=== PATIENT | male | born 1955 | race African-American/Black ===

== ENCOUNTER 2017-11-15 13:22 | Emergency (ER) | payer SELFPAY ==
[~2017-11-15] VITALS: Ht 175.3 cm; Wt 100.0 kg
[2017-11-15] MEDS ORDERED: ALBUTEROL (0.083%) 2.5MG/3ML NEB HHN STA (14:25)
[2017-11-15] MEDS ORDERED: IPRATROPIUM BROMIDE (0.02%) 0.5MG/2.5ML NEB HHN STA (14:25)
[2017-11-15] MEDS ORDERED: METHYLPREDNISOLONE SOD SUCC 125 MG/2 ML VIAL IV ONE (14:30)
[2017-11-15 14:57] LABS: BASOPHILS % 1.1 % (0.0-2.0); EOSINOPHILS % 4.8 % (0.0-5.0); HEMATOCRIT. 41.8 % (42.0-52.0); HEMOGLOBIN. 14.2 g/dL (14.0-18.0); LYMPHOCYTES % 25.6 % (20.0-50.0); MEAN CORPUSCULAR VOLUME 88.7 fL (80.0-94.0); MEAN PLATELET VOLUME 8.2 fl (7.4-10.4); MONOCYTES % 9.5 % (2.0-8.0); PLATELET 268 x1000/uL (130-400); RED BLOOD CELL COUNT 4.72 mill/uL (4.7-6.1); RED CELL DISTRIBUTION WIDTH 14.7 % (11.6-14.6)
[2017-11-15 15:03] LABS: CHLORIDE 105 mEq/L (98-107)
[2017-11-15] MEDS ORDERED: AZITHROMYCIN 500 MG in DEXT 5% WATER 250 ML IV SCH (18:15)
[2017-11-15] MEDS ORDERED: CEFTRIAXONE 2 G PREMIX 50 ML IV ONE (18:15)
[2017-11-15] MEDS ORDERED: SODIUM CHLORIDE 0.9% 1,000 ML IV ONE (18:15)
[2017-11-15 20:24] VITALS: BP 160/100
== END 2017-11-15 20:33 | disposition home or self-care (01) ==
LOC: ER 13:22
DX: J44.9 Chronic obstructive pulmonary disease, unspecified (principal); I10 Essential (primary) hypertension; F12.10 Cannabis abuse, uncomplicated
CPT/HCPCS: 36415; 71045; 80053; 83605; 83690; 83880; 84484; 85025; 87040; 93005; 94640; 96365; 96366; 96368; 96375; 99285; J0456; J0696; J2930; J7611; J7060

== ENCOUNTER 2017-11-20 11:01 | Emergency (ER) | payer SELFPAY ==
[2017-11-20 12:39] VITALS: BP 220/117
== END 2017-11-20 13:06 | disposition left against medical advice (07) ==
LOC: ER 11:01
DX: Z13.89 Encounter for screening for other disorder (principal); J45.909 Unspecified asthma, uncomplicated; I10 Essential (primary) hypertension; F12.10 Cannabis abuse, uncomplicated; Z87.891 Personal history of nicotine dependence
CPT/HCPCS: 99281